=== PATIENT | male | born 1960 | race Caucasian/White ===

== ENCOUNTER → 2017-10-13 | Outpatient (CLI) | payer OTHER ==
--- NOTE | 2017-10-13 16:18 | US ---
EXAMINATION TYPE: US thyroid st tissue head/neck DATE OF EXAM: 10/13/2017 COMPARISON: NONE CLINICAL HISTORY: E04.1 Thyroid nodule. GLAND SIZE: Right Lobe: 4.7 x 1.7 x 1.7 cm Overall Parenchyma: homogenous Left Lobe: 3.7 x 1.7 x 1.4 cm Overall Parenchyma: homogeneous Isthmus Thickness: 0.2 cm NODULES RIGHT: # of nodules measured on right: 0 LEFT: # of nodules measured on left: 0 ISTHMUS: # of nodules measured in the isthmus: 0 Bilateral neck scanned, no evidence of lymphadenopathy. IMPRESSION: Homogeneous nonenlarged thyroid parenchyma without focal nodule.
== END | disposition home or self-care (01) ==
LOC: RADUSWWP 15:57
PROVIDERS: ATTEND Family Medicine
DX: E04.1 Nontoxic single thyroid nodule (principal)
CPT/HCPCS: 76536

== ENCOUNTER 2018-03-19 06:52 | Day surgery (SDC) | payer OTHER ==
[2018-03-12 11:38] VITALS: BMI 25.3
--- NOTE | 2018-03-18 15:13 | P.GSHP ---
History of Present Illness H&P Date: 03/19/18 CHIEF COMPLAINT: Rectal bleeding HISTORY OF PRESENT ILLNESS: The patient is a 57-year-old male who presents for removal of hemorrhoids. PAST MEDICAL HISTORY: Please see list. PAST SURGICAL HISTORY: Please see list. MEDICATIONS: Please see list. ALLERGIES: Please see list. SOCIAL HISTORY: No illicit drug use FAMILY HISTORY: No reports of Crohn disease or ulcerative colitis. REVIEW OF ORGAN SYSTEMS: CONSTITUTIONAL: No reports of fevers or chills. PHYSICAL EXAM: VITAL SIGNS: Stable GENERAL: Well-developed pleasant in no acute distress. HEENT: No scleral icterus. Extraocular movements grossly intact. Moist buccal mucosa. NECK: Supple without lymphadenopathy. CHEST: Unlabored respirations. Equal bilateral excursions. CARDIOVASCULAR: Regular rate and rhythm. Distal 2+ pulses. ABDOMEN: Soft, nontender, nondistended. MUSCULOSKELETAL: No clubbing, cyanosis, or edema. ASSESSMENT: 1. Rectal bleeding PLAN: 1. Recommend removal of hemorrhoids Past Medical History Past Medical History: Hypertension Additional Past Medical History / Comment(s): Lower back pain. History of Any Multi-Drug Resistant Organisms: None Reported Past Surgical History: Adenoidectomy, Ear Surgery, Tonsillectomy Additional Past Surgical History / Comment(s): Steriod injections to lower back. Past Anesthesia/Blood Transfusion Reactions: No Reported Reaction Smoking Status: Current every day smoker - Past Family History Mother Family Medical History: No Reported History Medications and Allergies Home Medications Medication Instructions Recorded Confirmed Type Celecoxib [CeleBREX] 200 mg PO DAILY 03/12/18 03/12/18 History Daily Fiber (Unknown Dose) 1 tab PO DAILY 03/12/18 03/12/18 History Methocarbamol [Robaxin] 500 mg PO DAILY 03/12/18 03/12/18 History amLODIPine BESYLATE/BENAZEPRIL 1 cap PO DAILY 03/12/18 03/12/18 History [amLODIPine BESYLATE/BENAZEPRIL 10-20 mg] Allergies Allergy/AdvReac Type Severity Reaction Status Date / Time amoxicillin Allergy Colitis Verified 03/12/18 11:24
[~2018-03-19 06:52] MED LIST: BUPIVACAINE LIPOSOME/PF 1.3% 20 ML, SODIUM CHLORIDE 0.9% 10 ML MISCELLANE ONE; DEXAMETHASONE SOD PHOSPHATE 10 MG/ML 1 ML VIAL IV ONE; MORPHINE SULFATE 4 MG/0.8 ML SYRINGE (INJ) IV PRN; NA PHOS,M-B/NA PHOS,DI-BA 133 ML ENEMA RECTAL STA; ONDANSETRON ODT 4 MG TAB PO ONE; Pre Op ABX Message 1 EACH MISC MISCELLANE ONE; ceFAZolin IN SWFI 2 GM/20 ML SYRINGE IVP ONE; metroNIDAZOLE-NS PMX 500 MG in SALINE 100 100ML.BAG IVPB ONE
[2018-03-19] MEDS ORDERED: LIDOCAINE 1% 20 ML VIAL (10MG/ML) FOR IV START INTRADERMA ONE (08:15)
[2018-03-19] MEDS ORDERED: ONDANSETRON 4 MG/2 ML VIAL IVP ONE (08:18)
[2018-03-19] MEDS: LACTATED RINGERS 1,000 ML IV SCH ×2 (08:21→09:05)
--- NOTE | 2018-03-19 08:45 | P.HPADDEND ---
H&P Addendum H&P Addendum Date: 03/19/18 Patient questions addressed. We'll proceed with hemorrhoidectomy. Postoperative care instructions also reviewed.
[2018-03-19] MEDS ORDERED: fentaNYL (PF) 50 MCG/ML 2 ML AMP ONE (09:06)
[2018-03-19] MEDS ORDERED: PROPOFOL 10 MG/ML 20 ML VIAL IV ONE (09:06)
[2018-03-19] MEDS ORDERED: MIDAZOLAM 2 MG/2 ML VIAL ONE (09:06)
[2018-03-19] MEDS ORDERED: ePHEDrine SULFATE/0.9% NACL/PF 50 MG/5 ML SYRINGE IV ONE (09:06)
[2018-03-19] MEDS ORDERED: CHLOROPROCAINE 3% 30 MG/ML 20 ML VIAL ONE (09:06)
[2018-03-19] MEDS ORDERED: PHENYLEPHRINE-0.9% NACL SYG 1 MG/10 ML SYRINGE ONE (09:06)
[2018-03-19] MEDS ORDERED: LACTATED RINGERS 1,000 ML IV ONE (09:50)
[2018-03-19 10:05] VITALS: TEMP 97.4
--- NOTE | 2018-03-19 10:14 | P.OP ---
Date of Procedure: 03/19/18 Description of Procedure: SURGEON: NICKIE PUENTES MD GENERAL NEUROLOGIST: NONE. PREOPERATIVE DIAGNOSES: 1. History of complicated internal hemorrhoids, grade 2. 2. History of complicated external hemorrhoids, grade 2. 3. History of rectal bleeding. 4. History of anorectal pain POSTOPERATIVE DIAGNOSES: 1. History of complicated internal hemorrhoids, grade 2. 2. History of complicated external hemorrhoids, grade 2. 3. History of rectal bleeding. 4. History of anorectal pain 5. Anal fissure at 12:00 6. Anal ring villous adenoma 7. Constipation OPERATION: 1. Excisional biopsy of anal ring villous adenoma 2. On table rectal lavage ANESTHESIA: MAC with Exparel mixture, spinal ESTIMATED BLOOD LOSS: 1 mL. PATHOLOGY: 1. Anal ring polyp, excisional biopsy. FINDINGS: 1. Grade 2 internal/external hemorrhoidal cushion without active bleeding 2. Flat villous adenoma at anal ring between 6:00 to 9 o'clock position of 1 cm sized fixed, easily friable 3. Anal fissure at 12:00, acute 4. Active defecation on the surgical field requiring rectal lavage INDICATIONS: The patient is a 54-year-old female who presents with rectal bleeding including complicated internal/external hemorrhoids. She completed a colonoscopy with findings of perianal lesion highly suspicious for dysplastic changes. She has a personal history of squamous cell cancer. Surgical intervention was described for hemorrhoidectomy including biopsy of the perianal lesion. Benefits and risks of the procedure, including bleeding, infection, incontinence, recurrent pain and recurrence of the hemorrhoids were discussed in detail. Informed consent was obtained. DESCRIPTION: Patient was brought to the operating room. The patient was prepared and draped in the standard sterile fashion. After IV sedation, he was then repositioned the prone jackknife position. Next, the perineum and buttocks was spread apart using Mastisol. The perineum was then prepped and draped in standard sterile fashion using Betadine. Preoperative medication was confirmed. Prior to incision, a timeout protocol was confirmed with surgical team. On the surgical field, the patient was actively defecating despite previous enema. An on table rectal lavage of 250 mL was used to evacuate the anal and rectal canal. A sponge was placed into the rectum to prohibit further spillage onto the surgical field. The perineum was re-prepped with Betadine Initially 2 fingers was easily inserted for dilation of the anus. A firm fixed villous adenoma was found with small exophytic projection of 4 mm at the 6:00 to 9 o'clock position. Size of the villous adenoma was 1 cm and easily friable. A perineal block using Exparel was placed. Grade 2 internal hemorrhoids along all 2 quadrants were identified without active bleeding. Separately an anal fissure at 12:00 was identified. Next, a LigaSure was used to excise a portion of the villous adenoma exophytic projection of 0.5 cm x 0.3 cm involving the area of dysplasia. Hemoostasis was checked. With the finding of active tumor, excision of hemorrhoids was deferred as source of bleeding was consistent with anal ring tumor. The perineum was cleansed. Several 4 x 4 gauze with mesh underwear was placed. At the end of the procedure, needle, sponge, and counts had been verified correct by the rn surgical. The patient then had tolerated the procedure well. Intraoperative findings including postoperative care instructions were discussed to the patient's family. Plan - Discharge Summary New Discharge Prescriptions: New Docusate [Colace] 100 mg PO DAILY #20 capsule HYDROcodone/APAP 5-325MG [[place] 5-325] 1 tab PO Q6HR PRN #20 tab PRN Reason: Pain metroNIDAZOLE [Flagyl] 500 mg PO BID #10 tab No Action amLODIPine BESYLATE/BENAZEPRIL [amLODIPine BESYLATE/BENAZEPRIL 10-20 mg] 1 cap PO DAILY Celecoxib [CeleBREX] 200 mg PO DAILY Methocarbamol [Robaxin] 500 mg PO DAILY Daily Fiber (Unknown Dose) 1 tab PO DAILY Discharge Medication List Celecoxib [CeleBREX] 200 mg PO DAILY 03/12/18 [History] Daily Fiber (Unknown Dose) 1 tab PO DAILY 03/12/18 [History] Methocarbamol [Robaxin] 500 mg PO DAILY 03/12/18 [History] amLODIPine BESYLATE/BENAZEPRIL [amLODIPine BESYLATE/BENAZEPRIL 10-20 mg] 1 cap PO DAILY 03/12/18 [History] Docusate [Colace] 100 mg PO DAILY #20 capsule 03/19/18 [Rx] HYDROcodone/APAP 5-325MG [[place] 5-325] 1 tab PO Q6HR PRN #20 tab 03/19/18 [Rx] metroNIDAZOLE [Flagyl] 500 mg PO BID #10 tab 03/19/18 [Rx] Follow up Appointment(s)/Referral(s): Nickie Puentes MD [STAFF PHYSICIAN] - 03/27/18 Patient Instructions/Handouts: *Surgery [facility] - Hemorrhoidectomy Discharge Instructions, Sitz Bath (DC) Activity/Diet/Wound Care/Special Instructions: Sitz bath 3 times daily and after bowel movements. Discontinue stool softener for diarrhea. No lifting over 4 pounds in 2 weeks. Discharge Disposition: HOME SELF-CARE
[2018-03-19 12:11] VITALS: BP 121/92; PULSE 96; RESP 18
== END 2018-03-19 12:30 | disposition home or self-care (01) ==
LOC: OR 06:52
PROVIDERS: ATTEND Surgery Plastic and Reconstructive Surgery
DX: C21.1 Malignant neoplasm of anal canal (principal); K64.1 Second degree hemorrhoids; K60.2 Anal fissure, unspecified; I10 Essential (primary) hypertension; F17.210 Nicotine dependence, cigarettes, uncomplicated; Z85.828 Personal history of other malignant neoplasm of skin; Z79.1 Long term (current) use of non-steroidal anti-inflammatories (NSAID); Z79.899 Other long term (current) drug therapy; Z88.0 Allergy status to penicillin
CPT/HCPCS: 88305; 88342; 88341; 46999; J2400; J2250; J1100; J2405; J3010; J2370; C9290; J2704; J0690

== ENCOUNTER 2024-01-15 19:31 | Emergency (ER) | payer MEDICARE, BC ==
--- NOTE | 2024-01-15 19:47 | ED ---
General Adult HPI - General Source: patient, RN notes reviewed Mode of arrival: ambulatory Limitations: no limitations <Shirin Penaloza - Last Filed: 01/15/24 19:45> <Devan Brown - Last Filed: 01/15/24 23:53> - General Chief complaint: Shortness of Breath Stated complaint: SOB Time Seen by Provider: 01/15/24 19:46 - History of Present Illness Initial comments: 63-year-old male presents to the emergency department for evaluation of shortness of breath. He states that today he was working on his 's car. When he came in the house and laid in bed he noticed that he was significantly more short of breath than usual. He states that he continues to experience some difficulty breathing. He denies any chest pain. He has a history of colorectal cancer with colostomy, in remission. (Shirin Penaloza) 63-year-old male history of COPD presenting with increased cough and dyspnea. Patient denies fever. Denies central chest pain. Symptoms have been present just today. He states he did work harder than usual today and believes he may have overdone it. Denies pain or swelling in the lower extremities. (Devan Brown) - Related Data Home Medications Medication Instructions Recorded Confirmed Albuterol Inhaler [Ventolin Hfa 2 puff INHALATION RT-QID PRN 01/15/24 01/15/24 Inhaler] Chlorzoxazone [Parafon Forte DSC] 500 mg PO DAILY 01/15/24 01/15/24 Chlorzoxazone [Parafon Forte DSC] 500 mg PO TID PRN 01/15/24 01/15/24 Fluticasone/Umeclidin/Vilanter 1 puff INHALATION RT-DAILY 01/15/24 01/15/24 [Trelegy Ellipta 100-62.5-25] Losartan [Cozaar] 50 mg PO DAILY 01/15/24 01/15/24 Nabumetone [Relafen] 750 mg PO BID 01/15/24 01/15/24 Omeprazole 40 mg PO DAILY 01/15/24 01/15/24 Rosuvastatin Calcium 5 mg PO DAILY 01/15/24 01/15/24 amLODIPine [Norvasc] 10 mg PO DAILY 01/15/24 01/15/24 Previous Rx's Medication Instructions Recorded Albuterol Inhaler [Ventolin Hfa 1 - 2 puff INHALATION Q4HR PRN #1 01/15/24 Inhaler] each Azithromycin [Zithromax Z Pack] 1 tab PO DIRECTED #6 tab 01/15/24 predniSONE 50 mg PO DAILY #5 tab 01/15/24 Allergies Allergy/AdvReac Type Severity Reaction Status Date / Time amoxicillin Allergy Colitis Verified 01/15/24 23:00 surgical glue AdvReac Rash/Hives Uncoded 01/15/24 19:37 Review of Systems ROS Other: All systems not noted in ROS Statement are negative. <Shirin Penaloza - Last Filed: 01/15/24 19:45> ROS Other: All systems not noted in ROS Statement are negative. <Devan Brown - Last Filed: 01/15/24 23:53> ROS Statement: Those systems with pertinent positive or pertinent negative responses have been documented in the HPI. Past Medical History Past Medical History: Cancer, Hypertension Additional Past Medical History / Comment(s): Lower back pain. History of Any Multi-Drug Resistant Organisms: None Reported Past Surgical History: Adenoidectomy, Ear Surgery, Tonsillectomy Additional Past Surgical History / Comment(s): Steriod injections to lower back. Past Anesthesia/Blood Transfusion Reactions: No Reported Reaction Past Psychological History: No Psychological Hx Reported Past Drug Use History: None Reported - Past Family History Mother Family Medical History: No Reported History <Shirin Penaloza - Last Filed: 01/15/24 19:45> General Exam Limitations: no limitations <Shirin Penaloza - Last Filed: 01/15/24 19:45> General appearance: alert, in no apparent distress Head exam: Present: atraumatic, normocephalic Eye exam: Present: normal appearance, PERRL ENT exam: Present: normal exam Neck exam: Present: normal inspection. Absent: tenderness Respiratory exam: Present: respiratory distress, decreased breath sounds. Absent: wheezes Cardiovascular Exam: Present: regular rate, normal rhythm GI/Abdominal exam: Present: soft. Absent: distended, tenderness Extremities exam: Present: normal inspection, normal capillary refill. Absent: calf tenderness Neurological exam: Present: alert, oriented X3, CN II-XII intact. Absent: motor sensory deficit Psychiatric exam: Present: normal affect, normal mood Skin exam: Present: warm, dry, intact <Devan Brown - Last Filed: 01/15/24 23:53> - General Exam Comments Initial Comments: Visual Physical Exam Vital signs reviewed General: Well-appearing, nontoxic, no acute distress, dyspneic . Head: Normocephalic, atraumatic Eyes: PERRLA, EOMI ENT: Airway patent Chest: Nonlabored breathing Skin: No visual rash, normal skin tone Neuro: Alert and oriented 3 Musculoskeletal: No gross abnormalities (Shirin Penaloza) Course Vital Signs 01/15/24 01/15/24 01/15/24 19:33 23:05 23:10 Temperature 97.4 F L Pulse Rate 114 H 114 H 98 Respiratory 24 Rate Blood Pressure 151/88 O2 Sat by Pulse 92 L Oximetry 01/15/24 23:20 Temperature Pulse Rate 95 Respiratory 16 Rate Blood Pressure 130/86 O2 Sat by Pulse 95 Oximetry Medical Decision Making <Shirin Penaloza - Last Filed: 01/15/24 19:45> - Lab Data Result diagrams: 01/15/24 20:44 01/15/24 20:44 <Devan Brown - Last Filed: 01/15/24 23:53> - Medical Decision Making Quick note preformed and electronically signed by Shirin Penaloza PA-C (Shirin Penaloza) Was pt. sent in by a medical professional or institution ([facility], [employer], urgent care, hospital, or usp...) When possible be specific @ -No Did you speak to anyone other than the patient for history (EMS, parent, family, police, friend...)? What history was obtained from this source @ -No Did you review nursing and triage notes (agree or disagree)? Why? @ -I reviewed and agree with nursing and triage notes Were old charts reviewed (outside hosp., previous admission, EMS record, old EKG, old radiological studies, urgent care reports/EKG's, usp records)? Report findings @ -No old charts were reviewed Differential Diagnosis (chest pain, altered mental status, abdominal pain women, abdominal pain men, vaginal bleeding, weakness, fever, dyspnea, syncope, he adache, dizziness, GI bleed, back pain, seizure, CVA, palpatations, mental health, musculoskeletal)? @ -[Differential Dyspnea: Coronary syndrome, arrhythmia, tamponade, asthma, COPD, pulmonary embolism, pneumonia, pneumothorax, pulmonary effusion, anaphylaxis, diabetic ketoacidosis, flailed chest, pulmonary contusion, diaphragmatic rupture, anemia, neuromuscular, this is not meant to be an all-inclusive list. EKG interpreted by me (3pts min.). @ -Sinus tachycardia rate of 106, RI interval 133, QRS duration 80, QTc [address] segment elevation. X-rays interpreted by me (1pt min.). @ -[Chest x-ray negative for focal pneumonia, no acute findings, hyperinflation consistent with COPD CT interpreted by me (1pt min.). @ -None done U/S interpreted by me (1pt. min.). @ -None done What testing was considered but not performed or refused? (CT, X-rays, U/S, labs)? Why? @ -None What meds were considered but not given or refused? Why? @ -None Did you discuss the management of the patient with other professionals (professionals i.e. , PA, [employer], lab, RT, psych nurse, social science instructor, dye feeder, teacher, chairman president and chief executive officer, director case management)? Give summary @ -No Was smoking cessation discussed for >3mins.? @ -No Was critical care preformed (if so, how long)? @ -No Were there social determinants of health that impacted care today? How? (Homelessness, low income, unemployed, alcoholism, drug addiction, transportation, low edu. Level, literacy, decrease access to med. care, [facility], rehab)? @ -No Was there de-escalation of care discussed even if they declined (Discuss DNR or withdrawal of care, Hospice)? DNR status @ -No What co-morbidities impacted this encounter? (DM, HTN, Smoking, COPD, CAD, Cancer, CVA, ARF, Chemo, Hep., AIDS, mental health diagnosis, sleep apnea, morbid obesity)? @COPD. Was patient admitted / discharged? Hospital course, mention meds given and route, prescriptions, significant lab abnormalities, going to OR and other pertinent info. @ -[63-year-old male with increased cough and dyspnea. History of COPD. Patient has diminished air entry bilaterally. No hypoxia. Mild respiratory distress. Chest x-ray showing hyperinflation without pneumothorax, no focal pneumonia. Normal CBC, normal CMP, negative D-dimer. Viral panel pending. Patient feeling much better after steroids and albuterol. He is eager for discharge. He will be treated for COPD exacerbation and will follow-up with his primary care provider. Undiagnosed new problem with uncertain prognosis? @ -No Drug Therapy requiring intensive monitoring for toxicity (Heparin, Nitro, Insulin, Cardizem)? @ -No Were any procedures done? @ -No Diagnosis/symptom? @ -COPD exacerbation Acute, or Chronic, or Acute on Chronic? @Acute Uncomplicated (without systemic symptoms) or Complicated (systemic symptoms)? @ -Default Side effects of treatment? @ -No Exacerbation, Progression, or Severe Exacerbation? @ -No Poses a threat to life or bodily function? How? (Chest pain, [place], HI, pneumonia, PE, COPD, DKA, ARF, appy, cholecystitis, CVA, Diverticulitis, Homicidal, Suicidal, threat to staff... and all critical care pts) @ -moderate risk (Devan Brown) - Lab Data Lab Results 01/15/24 01/15/24 01/15/24 Range/Units 20:44 20:44 20:44 WBC 9.0 (3.8-10.6) k/uL RBC 5.36 (4.30-5.90) m/uL Hgb 15.8 (13.0-17.5) gm/dL Hct 47.2 (39.0-53.0) % MCV 88.0 (80.0-100.0) fL MCH 29.6 (25.0-35.0) pg MCHC 33.6 (31.0-37.0) g/dL RDW 13.2 (11.5-15.5) % Plt Count 286 (150-450) k/uL MPV 7.5 Neutrophils % 75 % Lymphocytes % 13 % Monocytes % 5 % Eosinophils % 3 % Basophils % 1 % Neutrophils # 6.8 (1.3-7.7) k/uL Lymphocytes # 1.2 (1.0-4.8) k/uL Monocytes # 0.5 (0-1.0) k/uL Eosinophils # 0.2 (0-0.7) k/uL Basophils # 0.1 (0-0.2) k/uL PT 10.4 (10.0-12.5) sec INR 0.9 (<1.2) APTT 24.2 (22.0-30.0) sec D-Dimer (<0.60) mg/L FEU Sodium 138 (137-145) mmol/L Potassium 4.6 (3.5-5.1) mmol/L Chloride 106 (98-107) mmol/L Carbon Dioxide 23 (22-30) mmol/L Anion Gap 9 mmol/L BUN 16 (9-20) mg/dL Creatinine 0.79 (0.66-1.25) mg/dL Est GFR (CKD-EPI)AfAm >90 (>60 ml/min/1.73 sqM) Est GFR (CKD-EPI)NonAf >90 (>60 ml/min/1.73 sqM) Glucose 124 H (74-99) mg/dL Calcium 9.4 (8.4-10.2) mg/dL Total Bilirubin 0.8 (0.2-1.3) mg/dL AST 46 (17-59) U/L ALT 33 (4-49) U/L Alkaline Phosphatase 120 (38-126) U/L NT-Pro-B Natriuret Pep pg/mL Total Protein 7.3 (6.3-8.2) g/dL Albumin 4.4 (3.5-5.0) g/dL 01/15/24 01/15/24 Range/Units 20:44 20:44 WBC (3.8-10.6) k/uL RBC (4.30-5.90) m/uL Hgb (13.0-17.5) gm/dL Hct (39.0-53.0) % MCV (80.0-100.0) fL MCH (25.0-35.0) pg MCHC (31.0-37.0) g/dL RDW (11.5-15.5) % Plt Count (150-450) k/uL MPV Neutrophils % % Lymphocytes % % Monocytes % % Eosinophils % % Basophils % % Neutrophils # (1.3-7.7) k/uL Lymphocytes # (1.0-4.8) k/uL Monocytes # (0-1.0) k/uL Eosinophils # (0-0.7) k/uL Basophils # (0-0.2) k/uL PT (10.0-12.5) sec INR (<1.2) APTT (22.0-30.0) sec D-Dimer 0.49 (<0.60) mg/L FEU Sodium (137-145) mmol/L Potassium (3.5-5.1) mmol/L Chloride (98-107) mmol/L Carbon Dioxide (22-30) mmol/L Anion Gap mmol/L BUN (9-20) mg/dL Creatinine (0.66-1.25) mg/dL Est GFR (CKD-EPI)AfAm (>60 ml/min/1.73 sqM) Est GFR (CKD-EPI)NonAf (>60 ml/min/1.73 sqM) Glucose (74-99) mg/dL Calcium (8.4-10.2) mg/dL Total Bilirubin (0.2-1.3) mg/dL AST (17-59) U/L ALT (4-49) U/L Alkaline Phosphatase (38-126) U/L NT-Pro-B Natriuret Pep 29 pg/mL Total Protein (6.3-8.2) g/dL Albumin (3.5-5.0) g/dL Disposition <Shirin Penaloza - Last Filed: 01/15/24 19:45> Is patient prescribed a controlled substance at d/c from ED?: No Time of Disposition: 23:49 <Devan Brown - Last Filed: 01/15/24 23:53> Clinical Impression: Acute exacerbation of chronic obstructive pulmonary disease Disposition: HOME SELF-CARE Condition: Fair Instructions (If sedation given, give patient instructions): COPD (Chronic Obstructive Pulmonary Disease) (ED) Prescriptions: predniSONE 50 mg PO DAILY #5 tab Albuterol Inhaler [Ventolin Hfa Inhaler] 1 - 2 puff INHALATION Q4HR PRN #1 each PRN Reason: Shortness Of Breath Azithromycin [Zithromax Z Pack] 1 tab PO DIRECTED #6 tab Referrals: Aislinn Morales MD [Primary Care Provider] - 1-2 days
[2024-01-15 19:54] VITALS: TEMP 97.4
--- NOTE | 2024-01-15 20:04 | XR ---
EXAMINATION TYPE: XR chest 2V DATE OF EXAM: 01/15/2024 COMPARISON: NONE HISTORY: Difficulty breathing TECHNIQUE: Frontal and lateral views of the chest are obtained. FINDINGS: There is mild hyperinflation of lungs consistent with COPD. There is no airspace consolidation or abnormal interstitial opacity. There is no pleural effusion or pneumothorax. Heart and pulmonary vascular normal. The osseous structures are intact. IMPRESSION: 1. No acute cardiopulmonary disease. 2. Findings suggestive of COPD.
[2024-01-15 21:30] LABS: Basophils # (A) 0.1 k/uL (0-0.2); Basophils % (A) 1 %; Eosinophils # (A) 0.2 k/uL (0-0.7); Eosinophils % (A) 3 %; HCT 47.2 % (39.0-53.0); HGB 15.8 gm/dL (13.0-17.5); INR 0.9 (<1.2); Lymphocytes # (A) 1.2 k/uL (1.0-4.8); Lymphocytes % (A) 13 %; MCH 29.6 pg (25.0-35.0); MCHC 33.6 g/dL (31.0-37.0); Mean Platelet Volume 7.5; Monocytes # (A) 0.5 k/uL (0-1.0); Monocytes % (A) 5 %; Neutrophils # (A) 6.8 k/uL (1.3-7.7); Neutrophils % (A) 75 %; Partial Thromboplastin Time 24.2 sec (22.0-30.0); Platelet Count 286 k/uL (150-450); Prothrombin Time 10.4 sec (10.0-12.5); RBC 5.36 m/uL (4.30-5.90); RDW 13.2 % (11.5-15.5)
[2024-01-15 21:35] LABS: ALT 33 U/L (4-49); AST 46 U/L (17-59); African American GFR (CKD) >90 (>60 ml/min/1.73 sqM); Albumin 4.4 g/dL (3.5-5.0); Alkaline Phosphatase 120 U/L (38-126); Anion Gap 9 mmol/L; Blood Urea Nitrogen 16 mg/dL (9-20); Calcium 9.4 mg/dL (8.4-10.2); Carbon Dioxide 23 mmol/L (22-30); Chloride 106 mmol/L (98-107); Glucose 124 mg/dL (74-99); Non-African American GFR(CKD) >90 (>60 ml/min/1.73 sqM); Potassium 4.6 mmol/L (3.5-5.1); Sodium 138 mmol/L (137-145); Total Bilirubin 0.8 mg/dL (0.2-1.3); Total Protein 7.3 g/dL (6.3-8.2)
[2024-01-15] MEDS: IPRATROPIUM-ALBUTEROL 3 ML NEB INHALATION STA (23:02)
[2024-01-15] MEDS: ALBUTEROL NEBULIZED 2.5 MG/3 ML INHALATION STA (23:02)
[2024-01-15] MEDS: SODIUM CHLORIDE 0.9% 500 ML 500 ML IV ONE (23:04)
[2024-01-15] MEDS: methylPREDNISolone SOD SUCCI 125 MG/2 ML VIAL IV STA (23:20)
[2024-01-15 23:43] VITALS: BP 130/86; PULSE 95; RESP 16
== END 2024-01-15 23:58 | disposition home or self-care (01) ==
LOC: EC 19:31
DX: J44.1 Chronic obstructive pulmonary disease with (acute) exacerbation (principal); R00.0 Tachycardia, unspecified; I10 Essential (primary) hypertension; Z79.899 Other long term (current) drug therapy; Z88.0 Allergy status to penicillin; Z91.09 Other allergy status, other than to drugs and biological substances; Z79.51 Long term (current) use of inhaled steroids
CPT/HCPCS: 99285; 96374; 36415; 94640; 93005; 85379; 83880; 80053; 85025; 85610; 85730; 87636; 71046; J2930

== ENCOUNTER → 2024-06-07 | Outpatient (CLI) | payer BC, MEDICARE ==
--- NOTE | 2024-06-07 09:37 | US ---
EXAMINATION TYPE: US thyroid st tissue head/neck DATE OF EXAM: 06/07/2024 COMPARISON: NONE CLINICAL INDICATION: Male, 63 years old with history of E04.1 NONTOXIC SINGLE THYROID NODULE; nodule GLAND SIZE: Right Lobe: 4.9 x 1.6 x 1.7 cm Overall Parenchyma: homogeneous Left Lobe: 4.4 x 1.9 x 1.9 cm Overall Parenchyma: homogeneous Isthmus Thickness: 0.2 cm NODULES RIGHT: # of nodules measured on right: 0 LEFT: # of nodules measured on left: 0 ISTHMUS: # of nodules measured in the isthmus: 0 Bilateral neck scanned, no evidence of lymphadenopathy. IMPRESSION: No thyroid nodules. 2017 ACR TI-RADS LEVEL: *Highest TI-RADS level nodule reported
== END | disposition home or self-care (01) ==
LOC: RADUSWWP 07:52
PROVIDERS: ATTEND Family Medicine
DX: E04.1 Nontoxic single thyroid nodule (principal); R22.0 Localized swelling, mass and lump, head
CPT/HCPCS: 76536